=== PATIENT | male | born 1980 | race Caucasian/White ===

== ENCOUNTER → 2019-08-07 09:48 | Outpatient (CLI) | payer BC, SELFPAY ==
--- NOTE | ~2019-08-07 | MR_ITS ---
EXAMINATION: MR brain/brain stem wo/w con EXAM DATE: 08/07/2019 10:52 INDICATION: Generalized migraine headaches, pressure. Symptoms several months. TECHNIQUE: Magnetic resonance imaging (MRI) of the brain/brain stem obtained without contrast. Sagit jacob T1, axial diffusion, gradient echo (T2*), T1, T2, FLAIR sequences obtained. Patient was then inj ected with 15 cc intravenous Multihance contrast. Axial and coronal postcontrast T1 weighted sequence s obtained. There is no prior study for comparison. FINDINGS: There are no areas of restricted diffusion to suggest acute infarction. There is no acute hemorrhage seen on the T2*, a hemosiderin sensitive sequence. No intraparenchymal brain mass. The ve ntricles are normal in size. There are no extra-axial collections. Flow voids are seen in the cereb ral arteries on the T2-weighted sequences consistent with their expected patency. The orbits are unr emarkable. Soft tissue is unremarkable. There are no areas of abnormal enhancement on the postcont rast images. IMPRESSION: 1. Normal brain MRI examination. Reviewed, dictated and finalized at location A. [employer]
[2019-08-07 10:40] LABS: Blood Urea Nitrogen 14 mg/dL (8-26); Estimated Glomerular Filt Rate > 60
== END ==
PROVIDERS: PCP Internal Medicine; Visit Provider Internal Medicine
DX: R41.89 Other symptoms and signs involving cognitive functions and awareness (principal)
CPT/HCPCS: 70553; A9577

== ENCOUNTER 2019-12-08 11:51 | Outpatient (CLI) | payer BC, SELFPAY ==
--- NOTE | ~2019-12-08 | US_ITS ---
EXAMINATION: US thyroid DATE: 12/08/2019 13:10 INDICATION: Enlarged thyroid. Prior thyroiditis. TECHNIQUE: Multiple ultrasound images of the thyroid were obtained. COMPARISON: None. FINDINGS: The right thyroid lobe measures 5.1 x 1.9 x 1.9 cm. The left thyroid lobe measures 4.4 x 1.2 x 2.1 c m. No discrete nodules identified. There is normal echotexture, echogenicity and vascular flow throu ghout the thyroid gland. IMPRESSION: 1. Normal thyroid ultrasound. Reviewed, dictated and finalized at location A.
== END 2019-12-08 11:52 | disposition home or self-care (01) ==
PROVIDERS: PCP Internal Medicine; Visit Provider Internal Medicine
DX: Z83.49 Family history of other endocrine, nutritional and metabolic diseases (principal)
CPT/HCPCS: 76536

== ENCOUNTER 2024-01-20 13:40 | Outpatient (CLI) | payer BC, SELFPAY ==
--- NOTE | ~2024-01-20 | MR_ITS ---
EXAMINATION: MR femur LT wo con, MR knee LT wo con DATE: 01/20/2024 14:53 INDICATION: Left eye contusion and unspecified left knee and lower leg injury. TECHNIQUE: 1. Magnetic resonance imaging (MRI) of the left thigh was performed without intravenous contrast. Se quences included axial, sagittal and coronal T1-weighted FSE and fluid sensitive FSE STIR. The contra lateral right thigh is included on the coronal images. 2. Magnetic resonance imaging (MRI) of the left knee was performed without intravenous contrast. Seq uences included coronal PD-weighted FSE, coronal PD-weighted FS FSE, sagittal T2-weighted FSE, sagitt al PD-weighted FS FSE and axial PD weighted fat saturated FSE. COMPARISON: None. FINDINGS: Left thigh: Small band of mild feathery edema extending from the skin surface to the mid femoral diaphysis crossi ng the vastus lateralis muscle consistent with reported history of posttraumatic contusion. No discre te hematoma or other loculated fluid collections. Remaining musculature and tendons in the bilateral thighs appears normal and symmetric. There are couple bone islands at the medial and lateral femoral condyles better appreciated on the MR of the left knee. Suggestion of an additional low signal intens ity bone island at the lateral femoral condyle the contralateral right knee. Bone marrow signal other fitzgerald normal throughout the bilateral femurs. Neurovascular structures in the left thigh are unremarka ble. No pathologically enlarged left inguinal lymphadenopathy. Medial compartment: Medial meniscus is normal. Articular cartilage is normal. Lateral compartment: Lateral meniscus is normal. The portal fissuring without degenerative subchondral changes at the cent ral aspect of the lateral tibial plateau. Cartilage along the weightbearing lateral femoral condyle a ppears normal. Patellofemoral compartment: Deep chondral fissuring at the medial patellar facet without degenerative subchondral changes. Partia l-thickness chondral fissuring likely greater than 50% the cartilage thickness at the inferior aspect of the lateral patellar facet. Partial-thickness chondral ulceration and additional deep fissuring w ithout degenerative subchondral changes at the trochlear groove and inferolateral aspect of the media l trochlea. Cartilage along the lateral trochlea appears relatively preserved. Ligaments and tendons: Anterior and posterior cruciate ligaments are normal. The medial collateral ligament and fibular evan ateral ligament complex are normal. The extensor mechanism is normal with magic angle artifact at the distal quadriceps tendon. The visualized medial and lateral hamstring tendons as well as the iliotib ial band are normal. Fluid: Physiologic amount of fluid in the joint space. No loose osteochondral bodies identified. There is so ft tissue swelling and subcutaneous edema overlying the patellar tendon without discrete bursal fluid collection. Osseous/other: Low signal intensity bone islands as previously noted at the medial lateral femoral condyles. No frac ture or pathologic marrow replacing process. IMPRESSION: 1. Small likely muscular contusion of the vastus lateralis at the mid thigh. 2. Mild lateral and patellofemoral osteoarthritis with regions of deep chondral fissuring at the late ral tibial plateau and at the patella and trochlea. Reviewed, dictated and finalized at location A. IMPRESSION: 1. Small likely muscular contusion of the vastus lateralis at the mid thigh. 2. Mild lateral and patellofemoral osteoarthritis with regions of deep chondral fissuring at the lateral tibial plateau and at the patella and trochlea.
== END 2024-01-20 13:41 | disposition home or self-care (01) ==
LOC: ANHIMG 13:41
PROVIDERS: PCP Nurse Practitioner Family; Visit Provider Nurse Practitioner Family
DX: S89.90XA Unspecified injury of unspecified lower leg, initial encounter (principal); S70.12XA Contusion of left thigh, initial encounter; X58.XXXA Exposure to other specified factors, initial encounter; M17.12 Unilateral primary osteoarthritis, left knee
CPT/HCPCS: 73718; 73721